=== PATIENT | male | born 1930 | race Caucasian/White ===

== ENCOUNTER 2018-12-12 18:30 | Emergency (ER) | payer MEDICARE, BC, OTHER ==
[~2018-12-12] VITALS: Ht 177.8 cm; Wt 65.9 kg
[~2018-12-12 18:30] MED LIST: ACIPHEX PO; ACTOS PO; AMAR1TAB6 OR; ASPI81TA83 PO; ATROVENT0.02% INH; BISA10SU2 RE; BISO5TAB5 PO; BISOPROLOL FUMARATE PO; CARD2TAB PO; CEFD1CAP8 PO; COUM1TAB18 OR; DILT1CAP3 PO; DOXA1TAB41 PO; ELIQ2.5T PO; EX-L5TAB OR; FOLI1TAB PO; FOLI1TAB11 PO; GLIM4TAB PO; GLIMEPRIDE PO; GLUC850T OR; GLYX1TAB PO; JANUVIA PO; LEVO88TA3 PO; LEVOTHYROXINE PO; LISI40TA OR; LISI40TA PO; MAGN500T5 PO; METO50TA7 PO; MULTIVIT PO; NATE120T4 PO; OXYC10TA97 OR; PARO20TA3 PO; PAXIL PO; PERC5TAB8 OR; PERC7.5T8 OR; RABE1TAB PO; TRUL10IN SC; VITA10002 PO; XOPE1.252 IN; ZEBE5TAB OR; ZIAC1TAB PO; ZINC220T2 OR; januvia PO
[2018-12-12] MEDS ORDERED: ELIQ5TAB PO (18:50)
[2018-12-12] MEDS ORDERED: MYRB50TA (18:50)
[2018-12-12] MEDS ORDERED: METF500T4 (18:50)
[2018-12-12] MEDS ORDERED: MAGN400C2 PO (18:50)
[2018-12-12 19:18] LABS: BASO % 0.1 % (0.0-1.0); EOS % 0.1 % (0.0-3.0); HEMATOCRIT 33.7 % (42.0-52.0); HEMOGLOBIN 11.1 g/dl (13.5-17.5); LYMPH # 0.6 10^3/uL (1.5-4.5); LYMPH % 6.6 % (24.0-44.0); MEAN CORPUSCULAR HEMOGLOBIN 31.7 pg (27.0-33.0); MEAN CORPUSCULAR HGB CONC 32.9 g/dl (32.0-36.5); MEAN CORPUSCULAR VOLUME 96.3 fl (80.0-96.0); MONO # 1.2 10^3/uL (0.0-0.8); MONO % 12.7 % (0.0-5.0); NEUTROPHILS # 7.8 10^3/uL (1.8-7.7); NEUTROPHILS % 79.9 % (36.0-66.0); PLATELET COUNT, AUTOMATED 246 10^3/uL (150-450); WHITE BLOOD COUNT 9.8 10^3/uL (4.0-10.0)
[2018-12-12] MEDS ORDERED: ACETAMINOPHEN 325 MG TAB PO ONE (19:30)
[2018-12-12 19:46] VITALS: BP 152/81
== END 2018-12-12 19:59 | disposition home or self-care (01) ==
LOC: M ED 18:30
DX: Z98.818 Other dental procedure status (principal); E11.9 Type 2 diabetes mellitus without complications; I10 Essential (primary) hypertension; I48.91 Unspecified atrial fibrillation; D64.9 Anemia, unspecified; D69.6 Thrombocytopenia, unspecified; Z95.0 Presence of cardiac pacemaker; Z79.899 Other long term (current) drug therapy; Z79.84 Long term (current) use of oral hypoglycemic drugs; Z79.01 Long term (current) use of anticoagulants; Z91.040 Latex allergy status